=== PATIENT | male | born 1975 | race Caucasian/White ===

== ENCOUNTER 2016-10-31 12:22 | Emergency (ER) | payer OTHER ==
[~2016-10-31] VITALS: Ht 172.7 cm; Wt 86.4 kg
[2016-10-31 12:28] VITALS: BP 156/104; PULSE 70; RESP 16; O2SAT 98
[2016-10-31] MEDS ORDERED: TdaP Vaccine 0.5 mL Inj IM ONE (12:40)
--- NOTE | 2016-10-31 12:51 | ED.REPORT ---
HPI-General Illness Date of Service Oct 31, 2016 ED Provider: Kulwinder Verma PA-C 41-year-old male presenting with a chief complaint of a laceration to his left hand. Patient reports he was cutting plastic with a new razor knife when it slipped and grazed his flexed left third MCP joint. He is unsure of his tetanus status. Denies numbness/tingling. Denies co- morbidities such as diabetes, HIV, immunosuppression. Nursing Notes Stated Complaint: LACERATION ON LEFT HAND Chief Complaint: Laceration Nursing Notes Reviewed: Yes Allergies: Coded Allergies: Penicillins (Verified Allergy, Mild, RASH, 10/31/16) Scheduled Cephalexin (Cephalexin) 500 Mg Tablet 500 MG PO TID Scheduled PRN Hydrocodone-Acetaminophen 5-325 mg (Hydrocodone-Acetaminophen 5-325 mg) 1 Each Tablet 1-2 TABLET PO Q6H PRN PRN For Pain General Time Seen by MD: 12:35 Chief Complaint Laceration Past Medical History Past Medical History Denies Review of Systems Negative unless stated otherwise in history of present illness Physical Exam General: Well appearing, well developed, well nourished, no acute distress. Left hand: 1.5 cm laceration on the dorsal aspect of the third MCP joint. Apparent damage to the extensor tendon, incursion into the joint space. Minimal bleeding. Full range of motion at MCP, PIP and DIP joint. Reduced strength in extension at MCP joint. Sensation and brisk capillary refill intact at distal third digit. Head: Atraumatic, normocephalic. Eyes: No scleral icterus or injection. No discharge. Vision grossly intact. ENT: Voice clear, hearing grossly intact. Respiratory: No respiratory distress, no increased work of breathing. Speaks in complete sentences. Skin: Warm and dry. Neurological: Grossly nonfocal. Psychological: alert and oriented. Speech appropriate, linear and logical. Behavior appropriate. Vital Signs Vital Signs Date Time Temp Pulse Resp B/P Pulse Ox O2 Delivery O2 Flow Rate FiO2 10/31/16 12:28 36.6 70 16 156/104 98 Room Air Initial VS: Vital signs abnormal (elevated blood pressure) Procedures Laceration Management Procedure Performed by: Allied health pract Consent / Setup / Site Prep: Informed consent provided, Hand hygiene observed Location of Wound: Left dorsal third MCP joint Wound Length: 1 cm Local Anesthesia: Bupivacaine 0.5% Wound Preparation: Normal saline Irrigation: Copious Foreign Body Explore / Removal: Explored for foreign body Repair Skin: Nylon (5-0) # Sutures - Skin: 3 Suture Technique: Mattress Post-Procedure / Complications: Antibiotic oint applied, Dressing applied, No complications, Condition improved, Tolerated procedure well, Patient stable Discharge & Departure Primary Impression: Laceration Additional Impression: Elevated blood pressure reading Disposition: Home Discharge Condition All VS Reviewed: Yes Condition: Stable Patient Instructions: Laceration (ED) Additional Instructions: Evaluation for finger laceration the emergency department included history, physical examination and x-rays which suggested he have damaged the tendon on the back of your hand. We have discussed this with our orthopedic surgeon on- call who recommended he see Dr. Juárez, the hand specialist. I will provide you with a referral, please contact their office to arrange follow-up early next week. Here in the emergency department we have closed the wound with sutures, placed the finger in a splint and dress the wound with antibiotic ointment and gauze. Until then you can wash with soap and water and change the dressing daily. You have also been given a shot of antibiotics. You been provided with a prescription for cephalexin 500 mg to be taken 3 times a day for the next 7 days. This is an antibiotic to prevent infection. Pain is best managed with 60 mg ibuprofen taken every 6 hours. We have also provided a prescription for a small amount of hydrocodone/acetaminophen which can be taken for more severe pain. Please do not drink alcohol or operate a vehicle within 4 hours of taking this medication. Return to emergency department for any new or worsening symptoms including increasing pain, redness, swelling. I also note that your blood pressure was elevated during your visit to the emergency department. Please discuss this with your primary care provider. Referrals: Bernardo Juárez DO EDSupervising Provider for APC: Jay Orantes MD Attending Statement This patient was initially seen by the mid-level provider, but I personally interviewed and examined the patient and reviewed the radiographs. This is a 41-year-old [id number] male who suffered a laceration over the MCP joint of the left middle finger just prior to arrival when he slipped with a ferris knife. Has about a 1-1/2 cm laceration, does include a partial extensor tendon injury, with weakness on extension. He has intact 2 point discrimination, no signs of vascular injury. He received tetanus update. His I discussed his case with the on-call orthopedist Dr. Lawrence who agreed with the plan to irrigate, repair the skin, splint in extension, treat empirically with antibiotic, and have follow-up in his his office. He recommends the patient should see Dr. Juárez in follow-up. copies to: Bernardo Juárez Seth PA-C Oct 31, 2016 12:51 Jay Orantes MD Oct 31, 2016 13:32
[2016-10-31] MEDS ORDERED: CeFAZolin 1,000 mg Inj IM ONE (13:20)
[2016-10-31] MEDS ORDERED: HYDR-4003 PO (13:28)
[2016-10-31] MEDS ORDERED: CEPH500T PO (13:28)
--- NOTE | 2016-10-31 13:45 | DRSVH ---
PROCEDURE: X-RAY LEFT HAND, MINIMUM THREE VIEWS ([id number]) INDICATIONS: pain TECHNIQUE: 3 views of the hand(s) acquired. COMPARISON: None. FINDINGS: Bones: No fractures or dislocations. Carpal bones are normally aligned. No suspicious bony lesions . Significant degenerative changes are evident. Soft tissues: No suspicious soft tissue calcifications. The overlying soft tissues are within jg l limits. No unexpected radiopaque foreign bodies. IMPRESSION: Unremarkable left hand radiographs. Dictated by: Angelo Gunderson M.D. on 10/31/2016 at 12:42 Approved by: Angelo Gunderson M.D. on 10/31/2016 at 12:43
[2016-10-31 15:04] VITALS: BP 155/102; PULSE 58; RESP 16
== END 2016-10-31 14:50 | disposition home or self-care (01) ==
LOC: SED 12:22
DX: S61.213A Laceration without foreign body of left middle finger without damage to nail, initial encounter (principal); R03.0 Elevated blood-pressure reading, without diagnosis of hypertension; W26.0XXA Contact with knife, initial encounter; Y93.89 Activity, other specified; Y92.69 Other specified industrial and construction area as the place of occurrence of the external cause; Y99.0 Civilian activity done for income or pay; Z88.0 Allergy status to penicillin; Z23 Encounter for immunization
CPT/HCPCS: 12001; 73130; 90471; 90715; 96372; 99284; J0690